=== PATIENT | female | born 1975 | race Caucasian/White ===

== ENCOUNTER 2017-03-30 21:01 | Emergency (ER) | payer SELFPAY ==
[2017-03-30 21:50] VITALS: BP 152/95
== END 2017-03-30 21:50 | disposition home or self-care (01) ==
LOC: ED 21:01
DX: S93.401A Sprain of unspecified ligament of right ankle, initial encounter (principal); X58.XXXA Exposure to other specified factors, initial encounter; Y93.89 Activity, other specified; Y92.89 Other specified places as the place of occurrence of the external cause; Y99.8 Other external cause status